=== PATIENT | female | born 1975 | race Caucasian/White ===

== ENCOUNTER 2018-02-27 23:13 | Emergency (ER) | payer OTHER ==
[~2018-02-27] VITALS: Ht 165.1 cm; Wt 67.1 kg
[2018-02-27 23:36] VITALS: BP 132/54
== END 2018-02-28 04:34 | disposition home or self-care (01) ==
LOC: ER 23:17
DX: S93.412A Sprain of calcaneofibular ligament of left ankle, initial encounter (principal); M25.521 Pain in right elbow; Z88.1 Allergy status to other antibiotic agents; Z90.710 Acquired absence of both cervix and uterus; W01.0XXA Fall on same level from slipping, tripping and stumbling without subsequent striking against object, initial encounter; Y93.89 Activity, other specified; Y92.89 Other specified places as the place of occurrence of the external cause; Y99.8 Other external cause status
CPT/HCPCS: 73070; 73610

== ENCOUNTER 2024-10-31 06:14 | Day surgery (SDC) | payer BC ==
[~2024-10-31] VITALS: Ht 165.1 cm; Wt 75.7 kg
[~2024-10-31 06:14] MED LIST: PAR20T PO
[2024-10-31] MEDS ORDERED: PROPOFOL 10 MG/ML 20 ML IV ONE (06:54)
[2024-10-31] MEDS ORDERED: fentaNYL CITRATE 100 MCG/2 ML VL ONE ×2 (06:54→08:07)
[2024-10-31] MEDS ORDERED: ROPIVACAINE 0.5% (5MG/ML) 20ML AMPULE IJ ONE (07:13)
[2024-10-31] MEDS: ceFAZolin 2 GM/D5W100ml 100 ML IV ONE (07:35)
[2024-10-31] MEDS ORDERED: ePHEDrine SULFATE 50 MG/ML AMP ONE (07:46)
[2024-10-31] MEDS ORDERED: DexAMETHasone SOD PHOS 10MG/1ML VIAL INJ ONE (07:54)
[2024-10-31] MEDS ORDERED: ONDANSETRON HCL 4 MG/2 ML VIAL ONE (07:54)
[2024-10-31] MEDS ORDERED: MEPERIDINE HCL (25 MG/ML) 1ML VIAL ONE (08:06)
[2024-10-31] MEDS: BUPIVACAINE HCL 50 ML ONE (08:26)
[2024-10-31] MEDS ORDERED: BACITRACIN TOP OINT 1 UD PKG TOP ONE (08:26)
[2024-10-31 10:00] VITALS: PULSE 104; RESP 20; TEMP 97.6; O2SAT 97
[2024-10-31] MEDS ORDERED: ONDANSETRON HCL 4 MG/2 ML VIAL IV ONE (10:15)
[2024-10-31] MEDS ORDERED: ACETAMINOPHEN IV 1000 MG/100ML (10MG/ML) IV PRN (10:15)
[2024-10-31] MEDS ORDERED: MEPERIDINE HCL (25 MG/ML) 1ML VIAL IV PRN (10:15)
[2024-10-31] MEDS ORDERED: ACETAMINOPHEN IV 0 ML IV ONE (10:30)
--- NOTE | 2024-10-31 10:30 | DVH ---
C-ARM FLUOROSCOPY: PROCEDURE: Ligament reconstruction FLUOROSCOPY TIME: 27 seconds DAP: 1 mgy FINDINGS: Spot intraoperative C arm radiographs demonstrating right knee ligament reconstruction. IMPRESSION: Please refer to surgical report for detailed findings.
[2024-10-31] MEDS: HYDROmorphone HCL 2 MG/ML VL/or syr IV PRN (10:38)
[2024-10-31 10:55] VITALS: BP 115/68; PULSE 93; RESP 19; O2SAT 98
--- NOTE | 2024-10-31 12:25 | DVHOP2 ---
Operative Report - 2 Report Details Date: 10/31/24 Preop Diagnosis: Right knee medial collateral ligament tear Postop Diagnosis: Right knee medial collateral ligament tear Surgeon: Manolo Eaton MD Sales Development Executive: Ankit goldberg Anesthesiologist: Neva Scott Anesthesia: General, Regional Consent: The patient was seen in the clinic. She had chronic knee pain and instability. Clinical and radiological evaluation demonstrated MCL grade 2 sprain. This was noticed on MRI. She had very specific instability episodes especially while getting off a horse. Nonoperative and operative management options were discussed. Thorough nonoperative management was initiated including physical therapy, observation brace which she had failed with her previous orthopedic surgeon. She also had a knee arthroscopy done in the past. Surgery in the form of knee arthroscopy, chondroplasty, meniscus repair, open medial collateral ligament reconstruction was discussed with her. Benefits, risks and treatment alternatives were discussed. Pros and cons were discussed. It was mentioned that the surgery may not help her with the pain but may help her with the instability alone. All her questions were answered. The patient was informed of the risks and benefits of the procedure. These include but are not limited to complications of anesthesia, postoperative infection, incomplete relief of symptoms, recurrence of symptoms, damage to blood vessels, nerves and tendons, deep venous thrombosis, pulmonary embolism and possible need for repeat surgery in the future. Complications: None Estimated Blood Loss: Less than 10 mL Name of Procedure Performed Right knee arthroscopy, diagnostic and open medial collateral ligament reconstruction Procedure Details Procedure Details: The patient was identified in the preoperative holding area and the surgical site was marked. The consent was verified. She was brought into the operating room and placed supine on the operating table. General anesthesia was admini stered. Intravenous antibiotics were given. The extremity was prepped and draped in the usual sterile manner. A time-out was called to confirm that and she will have patient, the nature of surgery, the site of surgery, the availability of implants and x-rays and allergies to medications. The knee was examined under anesthesia and was found to have grade 2 laxity in 30 of flexi on. With full extension, the knee was stable in both varus and valgus stress test. Anterior drawer test was negative. Quinton test was negative. Pivot shift test was negative. Posterior drawer test was negative. Dial test was negative. Based on these findings, I decided do a diagnostic arthroscopy to look for any meniscus tears that can cause locking and catching and also sometimes instability like episodes. A standard anterolateral portal established, a probe was inserted. A standard anteromedial portal established, a probe was inserted in the findings were as follows 1. Intact ACL and PCL 2. Positive drive-through sign through the medial compartment with significant open joint space. 3. Intact medial and lateral menisci 4. 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 5. Intact patellofemoral joint with no significant chondromalacia 6. No loose bodies After the diagnostic arthroscopy, I decided to go ahead and do the open medial collateral ligament reconstruction. An incision was made over the medial femoral epicondyle. C-arm imaging was used to assess the MCL femoral attachment as per radiological markers. The skin and subcutaneous tissue were dissected. The deep fascia was incised. The medial epicondyle and the adductor tubercle were identified. The space between that was identified as well. Hemostasis was achieved. Care was taken to protect the saphenous nerve by appropriate retraction. A guide pin was inserted at the anatomical landmark. C-arm images were obtained in AP and lateral views to confirm this. Next an 8 mm Reamer was inserted based on the allograft measurements. An Achilles tendon allograft was opened up at the back table. The bone plug was removed. This was shaped to approximately 8 mm. This was whipstitched at one end. The site was now inserted into the attachment, approximately 20 mm and an interference screw was inserted. Excellent fixation was noted The proximal tibia was exposed. This was a 3 cm incision. The medial collateral ligament attachment on the tibial side was also noted. The tear on the MRI was a midsubstance tear. Both the origin and the attachment ligament fibers could be identified. I decided to reconstruct the superficial medial collateral ligament. A an all suture anchor was inserted approximately 6 mm from the joint line. This was along the midshaft tibia and along the radiological markers. For the deep medial collateral ligament and posterior oblique ligament repair, another anchor was inserted slightly superior and posterior. This was closed the joint line. The graft was now brought into the tibial site. This was under the deep layer right next to the capsule. A whip stitch tension slide technique was used with both the all suture anchors. Excellent tensioning was noted. The knee was kept in 20 of flexion and varus stress test. The MCL was anatomically attached on both sides. Secure fixation was noted. Irrigation was given. The layers were closed with 0 Vicryl and 2-0 Vicryl and then 3-0 Monocryl. Sterile dressing was applied. The knee was placed into a hinged [id number] brace set at 0 of extension. Disposition: Good, the patient was extubated and taken to the recovery without any complications Plan: Nonweightbearing, range of motion locked in extension for now. Condition Good Disposition Home MANOLO EATON MD Oct 31, 2024 12:25
== END 2024-10-31 11:15 | disposition home or self-care (01) ==
LOC: SUR 06:14
PROVIDERS: ATTEND Orthopaedic Surgery Sports Medicine
DX: S83.411A Sprain of medial collateral ligament of right knee, initial encounter (principal); F41.9 Anxiety disorder, unspecified; E66.3 Overweight; Z98.890 Other specified postprocedural states; Z79.899 Other long term (current) drug therapy; Z98.891 History of uterine scar from previous surgery; Z88.1 Allergy status to other antibiotic agents; Z88.8 Allergy status to other drugs, medicaments and biological substances; Z90.710 Acquired absence of both cervix and uterus; Z88.0 Allergy status to penicillin; Z88.5 Allergy status to narcotic agent; X58.XXXA Exposure to other specified factors, initial encounter; Y93.89 Activity, other specified; Y92.89 Other specified places as the place of occurrence of the external cause; Y99.8 Other external cause status
CPT/HCPCS: 27427; 29870; 73560; C1713; J1100; J1171; J2175; J2405; J2704; J2795; J3010; J3490; 76000; J0131